=== PATIENT | male | born 1985 ===

== ENCOUNTER 2019-05-10 16:09 | Emergency (ER) | payer SELFPAY ==
[~2019-05-10] VITALS: Ht 167.6 cm; Wt 90.0 kg
[2019-05-10] MEDS ORDERED: KETOROLAC TROMETHAMINE 30 MG/ML VIAL IM ONE (17:30)
[2019-05-10] MEDS ORDERED: DIAZEPAM 5 MG TABLET PO ONE (17:30)
[2019-05-10 18:30] VITALS: BP 119/78
== END 2019-05-10 18:50 | disposition home or self-care (01) ==
LOC: EMS 16:10
DX: S39.012A Strain of muscle, fascia and tendon of lower back, initial encounter (principal); F12.90 Cannabis use, unspecified, uncomplicated; F17.210 Nicotine dependence, cigarettes, uncomplicated; V49.50XA Passenger injured in collision with unspecified motor vehicles in traffic accident, initial encounter; Y93.89 Activity, other specified; Y92.89 Other specified places as the place of occurrence of the external cause; Y99.8 Other external cause status
CPT/HCPCS: 96372; 99283; J1885